=== PATIENT | female | born 1980 | race Caucasian/White ===

== ENCOUNTER 2018-05-08 14:49 | Outpatient (REF) | payer MEDICAID, SELFPAY ==
--- NOTE | 2018-05-08 13:45 | PAPFT_PTH ---
PATIENT: LUKASZ FIERRO LOC: [facility] U#:[id number] AGE/SX: 37/F ROOM: RE05/08/[address]: Virginia Sanchez NP : 1980 BED: DIS: 05/08/2018 SPEC #: [id number] RECD: 05/08/18 17:47 STATUS: JORGE WEINER #: [id number] GAYATRI: 05/08/18 13:[address]: Virginia Sanchez NP DEPT: [facility] Cytology RECD BY: Sheron Anne ENTERED: 05/08/18 17:48 SP TYPE: PAPFT OTHR DR: Joanie Hill, LAKSHMI Tissues: 1 - CX/ENDOCX FOR PAP SMEARS Procedures: PAP THIN PREP/[facility] Screening HPV DNA PROBE Comments: [id number]
== END 2018-05-08 15:09 ==
LOC: LBN 14:49
PROVIDERS: Visit Provider Nurse Practitioner Women's Health
DX: Z12.4 Encounter for screening for malignant neoplasm of cervix (principal); Z11.51 Encounter for screening for human papillomavirus (HPV)
CPT/HCPCS: 88142; 87624

== ENCOUNTER 2018-06-04 15:34 | Outpatient (REF) | payer MEDICAID, SELFPAY ==
--- NOTE | 2018-06-04 14:30 | CER_PTH ---
PATIENT: LUKASZ FIERRO LOC: [facility] U#:[id number] AGE/SX: 37/F ROOM: RE06/04/[address]: Sandra Juan MD : 1980 BED: DIS: 06/04/2018 SPEC #: [id number] RECD: 06/04/18 17:53 STATUS: JORGE RESaw #: [id number] GAYATRI: 06/04/18 14:[address]: Sandra Juan DEPT: Surgical Specimen RECD BY: Sheron Anne ENTERED: 06/04/18 17:54 SP TYPE: CER OTHR DR: Joanie Hill APRN Tissues: 1 - CERVICAL BIOPSY 2 - ENDOCERVICAL BX/CURRETTE Procedures: GROSS AND MICRO LEVEL 4 Comments: [id number]
== END 2018-06-04 15:54 ==
LOC: LBN 15:34
PROVIDERS: Visit Provider Obstetrics & Gynecology
DX: N87.9 Dysplasia of cervix uteri, unspecified (principal); N72 Inflammatory disease of cervix uteri; R87.612 Low grade squamous intraepithelial lesion on cytologic smear of cervix (LGSIL)
CPT/HCPCS: 88305